=== PATIENT | male | born 1975 | race Caucasian/White ===

== ENCOUNTER 2016-06-18 22:50 | Emergency (ER) | payer MEDICARE | END 2016-06-19 00:28 | disposition home or self-care (01) | LOC: ER 22:50 | DX: R20.0 Anesthesia of skin (principal); R53.1 Weakness; R47.81 Slurred speech; R29.810 Facial weakness; M25.50 Pain in unspecified joint; Z87.820 Personal history of traumatic brain injury; F17.200 Nicotine dependence, unspecified, uncomplicated; Z86.73 Personal history of transient ischemic attack (TIA), and cerebral infarction without residual deficits | CPT/HCPCS: 36415; 70450; 71010; 80053; 80061; 82553; 82947; 84484; 85025; 85384; 85610; 85730 ==